=== PATIENT | female | born 1970 | race Two or more races ===

== ENCOUNTER 2018-11-11 09:27 | Outpatient (CLI) | payer BC | END 2018-11-11 23:59 | disposition home or self-care (01) | LOC: RAD 09:27 | PROVIDERS: ATTEND Family Medicine | DX: R94.31 Abnormal electrocardiogram [ECG] [EKG] (principal) | CPT/HCPCS: 71046 ==

== ENCOUNTER 2019-03-17 10:28 | Emergency (ER) | payer BC, OTHER ==
[~2019-03-17] VITALS: Ht 154.9 cm; Wt 81.6 kg
[2019-03-17 10:33] VITALS: BP 162/92
[2019-03-17] MEDS ORDERED: PANT40TA2 PO (10:40)
[2019-03-17] MEDS ORDERED: ASPI-605 PO (10:40)
== END 2019-03-17 11:27 | disposition home or self-care (01) ==
LOC: ER 10:31
DX: M54.16 Radiculopathy, lumbar region (principal); K21.9 Gastro-esophageal reflux disease without esophagitis; Z90.49 Acquired absence of other specified parts of digestive tract; Z79.82 Long term (current) use of aspirin; Z79.899 Other long term (current) drug therapy